=== PATIENT | female | born 1955 | race Caucasian/White ===

== ENCOUNTER 2025-01-18 19:02 | Observation (INO) | payer OTHER ==
[~2025-01-18] VITALS: Ht 152.4 cm; Wt 65.4 kg
[~2025-01-18 19:02] MED LIST: ASPIRIN325 MG PO; EFFEXOR XR75 MG PO; METOPROLOL SUCC50 MG PO; PRAVASTATIN SOD20 MG PO; TRIAMTERENE-HC1 EAC2 PO; VITAMIN D5000 UNI1 PO
[2025-01-18] MEDS ORDERED: LACTATED RINGER'S 1,000 ML IV ONE ×2 (19:05→20:15)
[2025-01-18] MEDS ORDERED: ATORVASTATIN CA20 MG PO (19:25)
[2025-01-18] MEDS ORDERED: OMEPRAZOLE20 MG PO (19:26)
[2025-01-18] MEDS ORDERED: LOSARTAN POTASS25 MG PO (19:26)
[2025-01-18] MEDS ORDERED: MILK THISTLE500 MG PO (19:27)
[2025-01-18 19:30] LABS: BASOPHILS 0.6 % (0-2); EOSINOPHILS 0.9 % (0-6); HEMATOCRIT 31.5 % (35.0-50.0); HEMOGLOBIN 11.3 g/dL (12.0-18.0); LYMPHOCYTES 18.9 % (24-44); MCH 33.6 (27-36); MCV 93.4 fl (81-99); MONOCYTES 8.8 % (0-12); NEUTROPHILS 70.8 % (39-80); PLATELET COUNT 289 K/uL (140-440); RBC 3.37 M/ul (4.3-5.7); RDW 12.9 (10.5-15.0)
[2025-01-18] MEDS ORDERED: levETIRAcetam 500 MG/5 ML VIAL IV ONE (19:30)
[2025-01-18] MEDS ORDERED: LORazepam 2 MG/ML VIAL IV ONE (19:30)
[2025-01-18 19:42] LABS: ALBUMIN 3.7 g/dL (3.4-5.0); ALBUMIN/GLOBULIN RATIO 1.19 (1.1-2.4); BILIRUBIN, TOTAL 0.4 mg/dL (0.2-1.0); BUN/CREATININE RATIO 14.63 (6.0-28.6); CALCIUM 9.6 mg/dL (8.5-10.1); CREATININE, SERUM 1.64 mg/dL (0.55-1.02); MAGNESIUM 1.6 mg/dL (1.8-2.4); PROTEIN, TOTAL 6.8 g/dL (6.4-8.2)
[2025-01-18] MEDS ORDERED: MAGNESIUM SULFATE 2 GM/50 ML BAG IV ONE (20:30)
[2025-01-18] MEDS ORDERED: POTASSIUM CHLORIDE 10 MEQ TABCR PO ONE (20:45)
[2025-01-18 21:11] LABS: LACTIC ACID, BLOOD 3.3 mmol/L (0.4-2.0)
[2025-01-18] MEDS ORDERED: CEFTRIAXONE SODIUM 2 GM in SODIUM CHLORIDE 0.9% 100 ML IV ONE (21:15)
[2025-01-18 21:22] LABS: BILIRUBIN, URINE NEGATIVE (negative); BLOOD/HGB, URINE NEGATIVE (Negative); KETONE, URINE NEGATIVE (Negative); LEUK ESTERASE, URINE NEGATIVE (negative); NITRITE, URINE NEGATIVE (negative)
[2025-01-18 21:37] LABS: AMPHETAMINES, URINE NEGATIVE (NEGATIVE); BARBITURATES, URINE NEGATIVE (NEGATIVE); BENZODIAZEPINE, URINE NEGATIVE (NEGATIVE); BUPRENORPHINE, URINE NEGATIVE (NEGATIVE); CANNABINOID, URINE NEGATIVE (NEGATIVE); COCAINE, URINE NEGATIVE (NEGATIVE); ECSTASY, URINE NEGATIVE (NEGATIVE); FENTANYL, URINE NEGATIVE (NEGATIVE); METHADONE, URINE NEGATIVE (NEGATIVE); OPIATES, URINE NEGATIVE (NEGATIVE); OXYCODONE, URINE NEGATIVE (NEGATIVE); PHENCYCLIDINE, URINE NEGATIVE (NEGATIVE)
[2025-01-18] MEDS ORDERED: SODIUM CHLORIDE 0.9% 500 ML IV PRN (21:45)
[2025-01-18] MEDS ORDERED: SODIUM CHLORIDE 0.9% 1,000 ML IV SCH ×2 (23:00→23:45)
[2025-01-18] MEDS ORDERED: SODIUM CHLORIDE 0.9% 1,000 ML IV ONE (23:15)
[2025-01-18] MEDS ORDERED: ACETAMINOPHEN 325 MG TAB PO PRN (23:45)
[2025-01-18] MEDS ORDERED: ondansetron HCL 4 MG/2 ML VIAL IV PRN (23:45)
[2025-01-19] VITALS (9 sets, daily range): BP systolic 86–112; BP diastolic 51–65
[2025-01-19] MEDS ORDERED: GABAPENTIN100 MG PO (00:16)
[2025-01-19 05:07] LABS: BASOPHILS 0.6 % (0-2); EOSINOPHILS 1.4 % (0-6); HEMATOCRIT 28.6 % (35.0-50.0); LYMPHOCYTES 26.5 % (24-44); MCH 32.8 (27-36); MCHC 34.9 g/dl (30-36); MCV 94.1 fl (81-99); MONOCYTES 8.6 % (0-12); NEUTROPHILS 62.9 % (39-80); PLATELET COUNT 199 K/uL (140-440); RBC 3.04 M/ul (4.3-5.7); RDW 13.1 (10.5-15.0)
[2025-01-19 05:23] LABS: ALBUMIN 2.8 g/dL (3.4-5.0); ALBUMIN/GLOBULIN RATIO 1.08 (1.1-2.4); ANION GAP 12.1 (7-21); BILIRUBIN, TOTAL 0.3 mg/dL (0.2-1.0); BUN/CREATININE RATIO 14.65 (6.0-28.6); CREATININE, SERUM 1.16 mg/dL (0.55-1.02); MAGNESIUM 1.8 mg/dL (1.8-2.4); POTASSIUM 4.1 mmol/L (3.5-5.1); PROTEIN, TOTAL 5.4 g/dL (6.4-8.2)
--- NOTE | 2025-01-19 07:26 | EKG ---
[facility] [address] [facility] [place] [address] Signed Normal sinus rhythm Nonspecific T wave abnormality Abnormal ECG No previous ECGs available Confirmed by Emery Ramirez MD ([id number]) on 01/19/2025 7:26:13 AM Electronically Signed By: EMERY RAMIREZ MD 01/19/25 0726 PATIENT NAME: NAY DYSON BRADFORD Electrocardiogram DATE OF : 51 PHYSICIAN: EMERY RAMIREZ MD REPORT #: [id number] REPORT IS CONFIDENTIAL AND NOT TO BE RELEASED WITHOUT AUTHORIZATION
[2025-01-19] MEDS ORDERED: PANTOPRAZOLE SODIUM 40 MG TABEC PO SCH (09:00)
[2025-01-19] MEDS ORDERED: PHARMACY RENAL DOSE ADJUSTMENT 1 DOSE MISC PO SCH (12:00)
== END 2025-01-19 08:56 | disposition home or self-care (01) ==
LOC: ED 19:02 → CCU 19:03
PROVIDERS: Family Medicine; ADMIT Student in an Organized Health Care Education/Training Program; ATTEND Student in an Organized Health Care Education/Training Program
DX: R55 Syncope and collapse (principal); I95.9 Hypotension, unspecified; N17.9 Acute kidney failure, unspecified; E86.0 Dehydration; E87.6 Hypokalemia; E83.42 Hypomagnesemia; I10 Essential (primary) hypertension; E78.5 Hyperlipidemia, unspecified; K21.9 Gastro-esophageal reflux disease without esophagitis; E03.9 Hypothyroidism, unspecified; Z79.899 Other long term (current) drug therapy
CPT/HCPCS: 36415; 70450; 71045; 80053; 80307; 81003; 83605; 83735; 83880; 84484; 85025; 87040; 93005; 93010; 94660; 96361; 96365; 96367; 96375; 99285-25; A9270; G0378; G0480; J0696; J1953; J2060; J3475; J7030; J7040; J7121; U0002